=== PATIENT | male | born 1955 | race Caucasian/White ===

== ENCOUNTER 2016-09-30 10:33 | Emergency (ER) | payer OTHER ==
[~2016-09-30] VITALS: Ht 172.7 cm; Wt 83.9 kg
[~2016-09-30 10:33] MED LIST: ASPI-605 PO; ATOR80TA PO; CARV3.122 PO; CLOP75TA2 PO; ESOM40CA PO; HYDR-548 PO; ISOS10TA2 PO; LORA-258 PO; LOSA100T3 PO; NITR0.4T6 PO
[2016-09-30 10:49] VITALS: BP 126/81
[2016-09-30] MEDS ORDERED: HYDROCODONE/APAP 5/325MG 1 EACH TABLET ONE (11:25)
[2016-09-30] MEDS: HYDROCODONE/APAP 5/325MG 1 EACH TABLET PO ONE (11:30)
== END 2016-09-30 13:02 | disposition home or self-care (01) ==
LOC: ER 10:35
DX: M54.5 Low back pain (principal); I10 Essential (primary) hypertension; F32.9 Major depressive disorder, single episode, unspecified; E78.00 Pure hypercholesterolemia, unspecified; Z88.8 Allergy status to other drugs, medicaments and biological substances; Z79.82 Long term (current) use of aspirin; I25.10 Atherosclerotic heart disease of native coronary artery without angina pectoris; M46.90 Unspecified inflammatory spondylopathy, site unspecified; Z95.5 Presence of coronary angioplasty implant and graft
CPT/HCPCS: 72110-TC; A4606; Z7610

== ENCOUNTER 2016-10-17 17:47 | Emergency (ER) | payer OTHER ==
[~2016-10-17] VITALS: Ht 182.9 cm; Wt 88.5 kg
[2016-10-17 18:15] LABS: BASOPHILS % (AUTO) 0.3 % (0.0-2.0); DIFF TOTAL % 100 %; EOSINOPHILS % (AUTO) 0.2 % (0.0-6.0); HEMATOCRIT 48 % (39-51); LYMPHOCYTES # (AUTO) 0.8 /CMM (0.8-4.8); LYMPHOCYTES % (AUTO) 11.2 % (20.0-44.0); MEAN CORPUSCULAR HEMOGLOBIN 29 PG (26.0-33.0); MEAN CORPUSCULAR HGB CONC 34 g/dl (31.0-36.0); MEAN CORPUSCULAR VOLUME 86 fL (80-96); MONOCYTES # (AUTO) 0.4 /CMM (0.1-1.30); MONOCYTES % (AUTO) 5.1 % (2.0-12.0); NEUTROPHILS % (AUTO) 83.2 % (43.0-81.0); PLATELET COUNT (AUTO) 179 /CMM (150-450); RED BLOOD CELL COUNT(AUTO) 5.57 MIL/uL (4.5-6.0); WHITE BLOOD COUNT (AUTO) 7.2 K/uL (4.3-11.0)
[2016-10-17 18:28] LABS: INR 0.96 (0.87-1.13); PROTHROMBIN TIME 10.1 SECS (9.5-12.7)
[2016-10-17 18:32] LABS: TROPONIN I < 0.017 ng/mL (0.00-0.056)
[2016-10-17 18:37] LABS: ANION GAP 13 (5-14); CALCIUM, SERUM 8.9 mg/dL (8.5-10.1); CARBON DIOXIDE 27 mmol/L (21-32); CHLORIDE 106 mmol/L (98-107); GFR 76 mL/min (>60); GLUCOSE 130 mg/dL (74-106); POTASSIUM 3.7 mmol/L (3.5-5.1); SODIUM SERUM 142 mmol/L (136-145); UREA NITROGEN, BLOOD 9 mg/dL (7-18)
[2016-10-17] MEDS ORDERED: ASPIRIN 81 MG TAB.CHEW ONE (18:55)
[2016-10-17] MEDS ORDERED: ASPIRIN 81 MG TAB.CHEW PO ONE (19:00)
[2016-10-17 20:17] VITALS: BP 136/80
== END 2016-10-17 20:18 | disposition home or self-care (01) ==
LOC: ER 17:48
DX: R07.89 Other chest pain (principal); I10 Essential (primary) hypertension; F32.9 Major depressive disorder, single episode, unspecified; I25.110 Atherosclerotic heart disease of native coronary artery with unstable angina pectoris; E78.00 Pure hypercholesterolemia, unspecified; F17.200 Nicotine dependence, unspecified, uncomplicated; Z90.89 Acquired absence of other organs; Z95.5 Presence of coronary angioplasty implant and graft; Z88.8 Allergy status to other drugs, medicaments and biological substances
CPT/HCPCS: 36415; 71010; 80048; 83880; 84484; 85025; 85730; 93005 ×2; 99285; A4606; Z7610

== ENCOUNTER 2017-05-01 14:39 | Emergency (ER) | payer OTHER ==
[~2017-05-01] VITALS: Ht 182.9 cm; Wt 86.2 kg
--- NOTE | 2017-05-01 14:51 | NUR ---
PT AMBULATORY TO ER BED 12. C/O ABDOMINAL PAIN X 2 DAYS. PT STATES UMBILICAL HERNIA AND PAIN IS GETTING WORST. ALSO HE IS DUE FOR SURGERY ANYTIME NEXT WEEK. GOWNED AND PLACED ON MONITOR. AWAITING MD TAVERA.
--- NOTE | 2017-05-01 15:15 | NUR ---
DR SYED AT BEDSIDE FOR EVAL.
[2017-05-01 15:45] LABS: BASOPHILS % (AUTO) 0.4 % (0.0-2.0); EOSINOPHILS % (AUTO) 0.3 % (0.0-6.0); HEMATOCRIT 45 % (39-51); HEMOGLOBIN 15.1 g/dL (13.5-17.5); LYMPHOCYTES # (AUTO) 1.1 /CMM (0.8-4.8); LYMPHOCYTES % (AUTO) 17.2 % (20.0-44.0); MEAN CORPUSCULAR HEMOGLOBIN 29 PG (26.0-33.0); MEAN CORPUSCULAR HGB CONC 34 g/dl (31.0-36.0); MEAN CORPUSCULAR VOLUME 86 fL (80-96); MONOCYTES # (AUTO) 0.4 /CMM (0.1-1.30); MONOCYTES % (AUTO) 6.5 % (2.0-12.0); NEUTROPHILS # (AUTO) 4.9 /CMM (1.8-8.9); NEUTROPHILS % (AUTO) 75.6 % (43.0-81.0); PLATELET COUNT (AUTO) 175 /CMM (150-450); RDW COEFFICIENT OF VARIATION 13.9 (11.5-15.0); RED BLOOD CELL COUNT(AUTO) 5.19 MIL/uL (4.5-6.0); WHITE BLOOD COUNT (AUTO) 6.4 K/uL (4.3-11.0)
[2017-05-01 15:55] LABS: CALCIUM, SERUM 8.3 mg/dL (8.5-10.1); CARBON DIOXIDE 26 mmol/L (21-32); CHLORIDE 109 mmol/L (98-107); CREATININE 0.8 mg/dL (0.6-1.3); GLUCOSE 96 mg/dL (74-106); POTASSIUM 3.7 mmol/L (3.5-5.1); SODIUM SERUM 143 mmol/L (136-145); UREA NITROGEN, BLOOD 6 mg/dL (7-18)
[2017-05-01 16:02] LABS: TROPONIN I < 0.017 ng/mL (0.00-0.056)
--- NOTE | 2017-05-01 16:03 | NUR ---
RADIOLOGY AT BEDSIDE FOR CHEST XRAY.
[2017-05-01 16:11] LABS: ALANINE AMINOTRANSFERASE 45 U/L (12-78); ALBUMIN 3.8 g/dL (3.4-5.0); ALKALINE PHOSPHATASE 99 U/L (46-116); ASPARTATE AMINOTRANSFERASE 26 U/L (15-37); BILIRUBIN,DIRECT 0.1 mg/dL (0.0-0.2); BILIRUBIN,TOTAL 0.5 mg/dL (0.2-1.0); LIPASE 79 U/L (73-393); TOTAL PROTEIN, SERUM 6.9 g/dL (6.4-8.2)
--- NOTE | 2017-05-01 16:24 | NUR ---
PT TO RADIOLOGY FOR ABDOMINAL CT SCAN W/ CONTRAST.
--- NOTE | 2017-05-01 17:59 | NUR ---
Patient discharged to home in stable condition. Written and verbal after care instructions given. Patient verbalizes understanding of instruction.IV removed. Catheter intact and site benign. Pressure and 4x4 applied to site. No bleeding noted.
[2017-05-01 18:00] VITALS: BP 135/80
== END 2017-05-01 18:02 | disposition home or self-care (01) ==
LOC: ER 14:42
DX: K42.9 Umbilical hernia without obstruction or gangrene (principal); I10 Essential (primary) hypertension; F32.9 Major depressive disorder, single episode, unspecified; E78.00 Pure hypercholesterolemia, unspecified; F17.200 Nicotine dependence, unspecified, uncomplicated; I25.10 Atherosclerotic heart disease of native coronary artery without angina pectoris; Z95.5 Presence of coronary angioplasty implant and graft; Z88.8 Allergy status to other drugs, medicaments and biological substances; Z79.82 Long term (current) use of aspirin
CPT/HCPCS: 36415; 71010-TC; 80048-TC; 80076-TC; 83690-TC; 84484-TC; 85025-TC; A4606; J2270; J2405; J7030; J7050; Q9967; Z7610

== ENCOUNTER 2017-12-03 12:22 | Emergency (ER) | payer OTHER ==
[~2017-12-03] VITALS: Ht 182.9 cm; Wt 80.7 kg
[~2017-12-03 12:22] MED LIST changes: +CLOP75TA15 PO; -CLOP75TA2 PO; +NITR0.4T48 PO; -NITR0.4T6 PO
[2017-12-03] MEDS ORDERED: HYDROCODONE/APAP 5/325MG 1 EACH TABLET ONE (13:15)
--- NOTE | 2017-12-03 13:19 | NUR ---
PT MEDICATED ORDERED.
[2017-12-03] MEDS ORDERED: HYDROCODONE/APAP 5/325MG 1 EACH TABLET PO ONE (13:30)
[2017-12-03 13:37] LABS: BASOPHILS % (AUTO) 0.2 % (0.0-2.0); HEMATOCRIT 46 % (39-51); HEMOGLOBIN 15.6 g/dL (13.5-17.5); LYMPHOCYTES # (AUTO) 0.9 /CMM (0.8-4.8); LYMPHOCYTES % (AUTO) 17.2 % (20.0-44.0); MEAN CORPUSCULAR HGB CONC 34 g/dl (31.0-36.0); MEAN CORPUSCULAR VOLUME 84 fL (80-96); MONOCYTES # (AUTO) 0.3 /CMM (0.1-1.30); MONOCYTES % (AUTO) 5.8 % (2.0-12.0); NEUTROPHILS # (AUTO) 3.8 /CMM (1.8-8.9); NEUTROPHILS % (AUTO) 76.8 % (43.0-81.0); PLATELET COUNT (AUTO) 171 /CMM (150-450); RDW COEFFICIENT OF VARIATION 13.4 (11.5-15.0); RED BLOOD CELL COUNT(AUTO) 5.41 MIL/uL (4.5-6.0)
[2017-12-03 13:45] LABS: CALCIUM, SERUM 8.7 mg/dL (8.5-10.1); CREATININE 0.8 mg/dL (0.6-1.3); POTASSIUM 3.5 mmol/L (3.5-5.1)
[2017-12-03 13:52] LABS: ALBUMIN 3.6 g/dL (3.4-5.0); BILIRUBIN,DIRECT 0.1 mg/dL (0.0-0.2); BILIRUBIN,TOTAL 0.5 mg/dL (0.2-1.0); TOTAL PROTEIN, SERUM 7.2 g/dL (6.4-8.2)
[2017-12-03 14:26] VITALS: BP 135/66
--- NOTE | 2017-12-03 14:28 | NUR ---
Patient discharged to home in stable condition. Written and verbal after care instructions given. Patient verbalizes understanding of instruction.
== END 2017-12-03 14:28 | disposition home or self-care (01) ==
LOC: ER 12:23
DX: K46.9 Unspecified abdominal hernia without obstruction or gangrene (principal); R10.33 Periumbilical pain; F17.200 Nicotine dependence, unspecified, uncomplicated; F32.9 Major depressive disorder, single episode, unspecified; E78.00 Pure hypercholesterolemia, unspecified; I10 Essential (primary) hypertension; Z79.82 Long term (current) use of aspirin; Z88.8 Allergy status to other drugs, medicaments and biological substances; Z60.2 Problems related to living alone; Z98.890 Other specified postprocedural states
CPT/HCPCS: 36415; 80048-TC; 80076-TC; 83690-TC; 85025-TC; A4606; Z7610

== ENCOUNTER 2017-12-14 07:39 | Emergency (ER) | payer OTHER ==
[2017-12-14] MEDS ORDERED: QUETIAPINE FUMARATE 100 MG TABLET PO SCH (09:00)
== END 2017-12-14 08:16 | disposition home or self-care (01) ==
DX: F31.9 Bipolar disorder, unspecified (principal); E78.00 Pure hypercholesterolemia, unspecified; I10 Essential (primary) hypertension; I25.10 Atherosclerotic heart disease of native coronary artery without angina pectoris; Z79.82 Long term (current) use of aspirin; Z95.5 Presence of coronary angioplasty implant and graft; F17.200 Nicotine dependence, unspecified, uncomplicated; Z60.2 Problems related to living alone; Z90.89 Acquired absence of other organs; Z88.8 Allergy status to other drugs, medicaments and biological substances

== ENCOUNTER 2018-03-25 18:00 | Emergency (ER) | payer OTHER ==
[~2018-03-25] VITALS: Ht 182.9 cm; Wt 80.7 kg
--- NOTE | 2018-03-25 18:10 | NUR ---
MIDSTERNAL CP R/T LUE SINCE 1300, ON & OFF " PRESSURE " 8 WITH NAUSEA. DENIES SOB, DIZZINESS @ THIS TIME. PT SEEN & EVAL'D BY DR. MARTINES. ON MONITOR, ST & WILL CONT TO MONITOR.
[2018-03-25] MEDS ORDERED: ASPIRIN 325 MG TABLET ONE (18:22)
[2018-03-25] MEDS ORDERED: NITROGLYCERIN PACKET 1 GM PACKET ONE (18:22)
[2018-03-25 18:30] LABS: BASOPHILS # (AUTO) 0.2 /CMM (0.0-0.2); BASOPHILS % (AUTO) 3.5 % (0.0-2.0); EOSINOPHILS % (AUTO) 0.2 % (0.0-6.0); HEMATOCRIT 48 % (39-51); HEMOGLOBIN 15.9 g/dL (13.5-17.5); LYMPHOCYTES # (AUTO) 0.8 /CMM (0.8-4.8); LYMPHOCYTES % (AUTO) 14.8 % (20.0-44.0); MEAN CORPUSCULAR HEMOGLOBIN 29 PG (26.0-33.0); MEAN CORPUSCULAR HGB CONC 33 g/dl (31.0-36.0); MEAN CORPUSCULAR VOLUME 86 fL (80-96); MONOCYTES # (AUTO) 0.3 /CMM (0.1-1.30); MONOCYTES % (AUTO) 5.9 % (2.0-12.0); NEUTROPHILS # (AUTO) 4.2 /CMM (1.8-8.9); NEUTROPHILS % (AUTO) 75.6 % (43.0-81.0); PLATELET COUNT (AUTO) 160 /CMM (150-450); RDW COEFFICIENT OF VARIATION 13.3 (11.5-15.0); RED BLOOD CELL COUNT(AUTO) 5.52 MIL/uL (4.5-6.0); WHITE BLOOD COUNT (AUTO) 5.5 K/uL (4.3-11.0)
[2018-03-25] MEDS ORDERED: NITROGLYCERIN PACKET 1 GM PACKET TD ONE (18:30)
[2018-03-25] MEDS ORDERED: ASPIRIN 325 MG TABLET PO ONE (18:30)
[2018-03-25 18:44] LABS: INR 0.95 (0.85-1.15)
[2018-03-25 18:53] VITALS: BP 111/68
--- NOTE | 2018-03-25 18:53 | NUR ---
PT STS CP 02/21, NON RADIATING. DENIES SOB, DIZZINESS, N/V, ARM/JAW PAIN @ THIS TIME. TELE ST, NAD NOTED. DR. MARTINES AWARE OF PT'S CONDITION.
--- NOTE | 2018-03-25 19:57 | NUR ---
PT REFUSED TO STAY IN HOSPITAL, PULLED OUT SALINE LOCK & LEFT ED. DR. MARTNIES AWARE.
[2018-03-25 20:42] LABS: TROPONIN I < 0.017 ng/mL (0.00-0.056)
[2018-03-25 21:06] LABS: CALCIUM, SERUM 8.4 mg/dL (8.5-10.1); CARBON DIOXIDE 20 mmol/L (21-32); CHLORIDE 109 mmol/L (98-107); CREATININE 1.1 mg/dL (0.6-1.3); GLUCOSE 141 mg/dL (74-106); POTASSIUM 3.5 mmol/L (3.5-5.1); SODIUM SERUM 143 mmol/L (136-145); UREA NITROGEN, BLOOD 12 mg/dL (7-18)
[2018-03-25 21:12] LABS: ALANINE AMINOTRANSFERASE 34 U/L (12-78); ALBUMIN 3.5 g/dL (3.4-5.0); ALKALINE PHOSPHATASE 101 U/L (46-116); ASPARTATE AMINOTRANSFERASE 27 U/L (15-37); BILIRUBIN,DIRECT 0.1 mg/dL (0.0-0.2); BILIRUBIN,TOTAL 0.8 mg/dL (0.2-1.0); TOTAL PROTEIN, SERUM 6.6 g/dL (6.4-8.2)
== END 2018-03-25 19:57 | disposition left against medical advice (07) ==
LOC: ER 18:01
DX: R07.89 Other chest pain (principal); I25.10 Atherosclerotic heart disease of native coronary artery without angina pectoris; E78.5 Hyperlipidemia, unspecified; F32.9 Major depressive disorder, single episode, unspecified; E78.00 Pure hypercholesterolemia, unspecified; F17.210 Nicotine dependence, cigarettes, uncomplicated; I10 Essential (primary) hypertension; Z95.5 Presence of coronary angioplasty implant and graft; Z90.89 Acquired absence of other organs; Z88.8 Allergy status to other drugs, medicaments and biological substances; Z60.2 Problems related to living alone; Z79.82 Long term (current) use of aspirin
CPT/HCPCS: 36415; 71045; 80048; 80076; 84484; 85025; 85730; 87081; 93005 ×2; 99285; 99406; A4606; Z7610

== ENCOUNTER 2018-11-21 03:16 | Emergency (ER) | payer OTHER ==
[~2018-11-21] VITALS: Ht 182.9 cm; Wt 72.1 kg
[~2018-11-21 03:16] MED LIST changes: +HYDR-4354 PO; -HYDR-548 PO
[2018-11-21] MEDS ORDERED: oxyCODONE/APAP (5/325 MG) 1 UDTAB TABLET ONE (03:39)
[2018-11-21] MEDS ORDERED: ONDANSETRON 4 MG TAB.RAPDIS ONE (03:39)
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
[2018-11-21] MEDS ORDERED: ONDANSETRON 4 MG TAB.RAPDIS SL ONE (04:00)
[2018-11-21] MEDS ORDERED: oxyCODONE/APAP (5/325 MG) 1 UDTAB TABLET PO ONE (04:00)
--- NOTE | 2018-11-21 04:38 | NUR ---
Patient discharged to home in stable condition. Written and verbal after care instructions given. Patient verbalizes understanding of instruction. Pt ambulatory with a steady gait. Instructed not to drive
[2018-11-21 04:39] VITALS: BP 110/89
== END 2018-11-21 04:38 | disposition home or self-care (01) ==
LOC: ER 03:18
DX: S20.212A Contusion of left front wall of thorax, initial encounter (principal); G89.29 Other chronic pain; N48.89 Other specified disorders of penis; F17.200 Nicotine dependence, unspecified, uncomplicated; M25.552 Pain in left hip; I10 Essential (primary) hypertension; F32.9 Major depressive disorder, single episode, unspecified; I25.10 Atherosclerotic heart disease of native coronary artery without angina pectoris; E78.00 Pure hypercholesterolemia, unspecified; Z95.818 Presence of other cardiac implants and grafts; Z98.890 Other specified postprocedural states; Z90.89 Acquired absence of other organs; Z88.8 Allergy status to other drugs, medicaments and biological substances; Z60.2 Problems related to living alone; Z79.899 Other long term (current) drug therapy; V09.9XXA Pedestrian injured in unspecified transport accident, initial encounter; Y93.89 Activity, other specified; Y92.89 Other specified places as the place of occurrence of the external cause; Y99.8 Other external cause status
CPT/HCPCS: 71100; 73503; 99283; 99406; Q0162; 73502

== ENCOUNTER 2019-01-31 17:29 | Emergency (ER) | payer OTHER ==
[~2019-01-31] VITALS: Ht 182.9 cm; Wt 74.8 kg
--- NOTE | 2019-01-31 17:40 | NUR ---
PRESSURE LIKE MIDSTERNAL CHEST PAIN THAT STARTED NOONTIME. PATIENT A/OX4, BREATHING EVEN AND UNLABORED, NO SOB NOTED, PATIENT ATTACHED ON THE AUDIT ASSOCIATE. VSS.
[2019-01-31] MEDS ORDERED: NITROGLYCERIN PACKET 1 GM PACKET TD ONE (18:00)
[2019-01-31] MEDS ORDERED: NITROGLYCERIN PACKET 1 GM PACKET ONE (18:10)
--- NOTE | 2019-01-31 18:10 | NUR ---
IV LINE ESTABLISHED ON RIGHT AC G20, BLOOD DRAWN AND SENT TO LAB.
[2019-01-31 18:13] LABS: BASOPHILS % (AUTO) 0.4 % (0.0-2.0); EOSINOPHILS % (AUTO) 0.1 % (0.0-6.0); HEMATOCRIT 45 % (39-51); HEMOGLOBIN 15.4 g/dL (13.5-17.5); LYMPHOCYTES # (AUTO) 0.9 /CMM (0.8-4.8); LYMPHOCYTES % (AUTO) 16.7 % (20.0-44.0); MEAN CORPUSCULAR HGB CONC 34 g/dl (31.0-36.0); MEAN CORPUSCULAR VOLUME 85 fL (80-96); MONOCYTES # (AUTO) 0.4 /CMM (0.1-1.30); MONOCYTES % (AUTO) 6.3 % (2.0-12.0); NEUTROPHILS # (AUTO) 4.3 /CMM (1.8-8.9); NEUTROPHILS % (AUTO) 76.5 % (43.0-81.0); PLATELET COUNT (AUTO) 168 /CMM (150-450); RED BLOOD CELL COUNT(AUTO) 5.23 MIL/uL (4.5-6.0); WHITE BLOOD COUNT (AUTO) 5.7 K/uL (4.3-11.0)
[2019-01-31 18:20] LABS: CARBON DIOXIDE 25 mmol/L (21-32); CHLORIDE 109 mmol/L (98-107); GLUCOSE 91 mg/dL (74-106); POTASSIUM 3.7 mmol/L (3.5-5.1); SODIUM SERUM 144 mmol/L (136-145); UREA NITROGEN, BLOOD 11 mg/dL (7-18)
--- NOTE | 2019-01-31 19:25 | NUR ---
PATIENT A/OX4, NAD, VSS. BREATHING EVEN AND UNLABORED, NO SOB NOTED. ENDORSED TO ROSY BUNCH FOR ESTELLE.
--- NOTE | 2019-01-31 19:58 | NUR ---
RESTING IN BED STILL W/ ON AND OFF CP, VSS. ON CONT MONITORING .
[2019-01-31] MEDS ORDERED: NITROGLYCERIN PACKET 1 GM PACKET TOP ONE (20:00)
--- NOTE | 2019-01-31 20:58 | NUR ---
REGAL PT CAPPED TO [facility]. AWAITING TRANSFER INFO. PT UPDATED ON STATUS.
[2019-01-31] MEDS ORDERED: HYDROCODONE/APAP 10/325MG 1 EA TABLET ONE (20:59)
[2019-01-31] MEDS ORDERED: HYDROCODONE/APAP 10/325MG 1 EA TABLET PO ONE (21:00)
--- NOTE | 2019-01-31 21:45 | NUR ---
PETTY FREEMAN SERVICE CASHIER CALLED. PATIENT IS GOING TO [facility] NURSES NAME IS NURYS # [phone]. PETTY STATED THAT SHE WAS WORKING ON SETTING UP TRANSPORTATION.
--- NOTE | 2019-01-31 22:11 | NUR ---
REPORT GIVEN TO ALIVIA TUCKER AT [facility] [phone] FOR PT TFR VIA ALS AMBULANCE TO [facility].
--- NOTE | 2019-01-31 23:39 | NUR ---
PETE HVAC ENGINEERING TECHNICIAN PETTY'S CONTACT # [phone]. GAVE AUTH. # [id number]. WAITING FOR ANOTHER AUTH NUMBER TO GIVE TO [facility] FOR TRANSPORT. ETA UNKNOWN.
[2019-01-31] MEDS ORDERED: MORPHINE SULFATE INJ 2 MG/ML DISP.SYRIN ONE (23:42)
--- NOTE | 2019-01-31 23:45 | NUR ---
TRIP # [id number]. WAITING FOR SECOND AUTH # FROM [facility]. CONTACT PETTY
[2019-02-01] MEDS ORDERED: MORPHINE SULFATE INJ 2 MG/ML DISP.SYRIN IV ONE
--- NOTE | 2019-02-01 00:30 | NUR ---
NEW COILED COIL INSPECTOR # [phone].
--- NOTE | 2019-02-01 00:52 | NUR ---
ROXANNE Brunner/ PETE ZAPIEN ETA 130AM.
--- NOTE | 2019-02-01 01:18 | NUR ---
REPORT GIVEN TO TREVIN VARELA AM [facility]#41 FOR PT TRANSFER VIA ALS TO [facility]. PT AOX4, RESP EVEN & UNLABORED, NSR W/ NAD NOTED.
[2019-02-01 01:20] VITALS: BP 132/60
--- NOTE | 2019-02-01 01:42 | NUR ---
PT WAS TRANSFERRED TO [facility] IN STABLE CONDITION. REPORTED RELIEF OF PAIN.
== END 2019-02-01 01:42 ==
LOC: ER 17:29
DX: R07.89 Other chest pain (principal); I25.10 Atherosclerotic heart disease of native coronary artery without angina pectoris; I10 Essential (primary) hypertension; E78.00 Pure hypercholesterolemia, unspecified; I25.2 Old myocardial infarction; F32.9 Major depressive disorder, single episode, unspecified; F17.200 Nicotine dependence, unspecified, uncomplicated; Z95.5 Presence of coronary angioplasty implant and graft; Z79.82 Long term (current) use of aspirin; Z90.89 Acquired absence of other organs; Z98.890 Other specified postprocedural states; Z60.2 Problems related to living alone; Z88.8 Allergy status to other drugs, medicaments and biological substances
CPT/HCPCS: 36415; 71045; 80048; 84484; 85025; 87081; 93005 ×2; 96374; 99285; J2270

== ENCOUNTER 2019-09-22 23:58 | Emergency (ER) | payer OTHER ==
[~2019-09-22] VITALS: Ht 182.9 cm; Wt 74.4 kg
[2019-09-23] MEDS ORDERED: ACETAMINOPHEN 325 MG TABLET ONE (00:25)
[2019-09-23] MEDS ORDERED: ASPIRIN 325 MG TABLET ONE (00:26)
[2019-09-23] MEDS ORDERED: NITROGLYCERIN PACKET 1 GM PACKET ONE (00:26)
[2019-09-23] MEDS ORDERED: ACETAMINOPHEN 325 MG TABLET PO ONE (00:30)
[2019-09-23] MEDS ORDERED: NITROGLYCERIN PACKET 1 GM PACKET TD ONE (00:30)
[2019-09-23] MEDS ORDERED: ASPIRIN 325 MG TABLET PO ONE (00:30)
[2019-09-23 00:36] LABS: BASOPHILS # (AUTO) 0.1 /CMM (0.0-0.2); BASOPHILS % (AUTO) 0.8 % (0.0-2.0); EOSINOPHILS % (AUTO) 0.2 % (0.0-6.0); HEMATOCRIT 45 % (39-51); HEMOGLOBIN 15.6 g/dL (13.5-17.5); LYMPHOCYTES # (AUTO) 1.8 /CMM (0.8-4.8); LYMPHOCYTES % (AUTO) 23.7 % (20.0-44.0); MEAN CORPUSCULAR HGB CONC 35 g/dl (31.0-36.0); MEAN CORPUSCULAR VOLUME 86 fL (80-96); MONOCYTES # (AUTO) 0.7 /CMM (0.1-1.30); MONOCYTES % (AUTO) 8.8 % (2.0-12.0); NEUTROPHILS % (AUTO) 66.5 % (43.0-81.0); PLATELET COUNT (AUTO) 230 /CMM (150-450); RED BLOOD CELL COUNT(AUTO) 5.22 MIL/uL (4.5-6.0); WHITE BLOOD COUNT (AUTO) 7.5 K/uL (4.3-11.0)
[2019-09-23 00:50] LABS: CALCIUM, SERUM 9.3 mg/dL (8.5-10.1); CARBON DIOXIDE 27 mmol/L (21-32); CHLORIDE 106 mmol/L (98-107); CREATININE 0.9 mg/dL (0.6-1.3); GLUCOSE 109 mg/dL (74-106); POTASSIUM 4.1 mmol/L (3.5-5.1); SODIUM SERUM 142 mmol/L (136-145); UREA NITROGEN, BLOOD 15 mg/dL (7-18)
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
--- NOTE | 2019-09-23 03:48 | NUR ---
PT VERBALIZED FEELING OF ANXIETY. MD MADE AWARE. VERBAL ORDER FOR ATIVAN 1MG PO X 1. NOTED AND CARRIED OUT
[2019-09-23] MEDS ORDERED: LORAZEPAM 1 MG TABLET ONE (03:49)
[2019-09-23] MEDS ORDERED: LORAZEPAM 1 MG TABLET PO ONE (04:00)
--- NOTE | 2019-09-23 05:37 | NUR ---
PETE CALLED WITH TRANSFER INFO. [facility] REPORT #: [phone] ALS [facility] ETA 7AM
--- NOTE | 2019-09-23 06:40 | NUR ---
REPORT GIVEN TO ALIVIA RAHMAN FOR ESTELLE AT THE [facility]
[2019-09-23 07:10] VITALS: BP 127/78
--- NOTE | 2019-09-23 07:21 | NUR ---
PRN AT BEDSIDE FOR PT TRANSPORT TO [facility]. REPORT GIVEN TO AMBULANCE STAFF. PT LEFT ON RCAYUCOS. NAD NOTED.
== END 2019-09-23 07:24 | disposition short-term general hospital (02) ==
LOC: ER 09-23 00:03
DX: R07.89 Other chest pain (principal); I10 Essential (primary) hypertension; F32.9 Major depressive disorder, single episode, unspecified; I25.10 Atherosclerotic heart disease of native coronary artery without angina pectoris; E78.00 Pure hypercholesterolemia, unspecified; F17.200 Nicotine dependence, unspecified, uncomplicated; Z95.818 Presence of other cardiac implants and grafts; Z98.890 Other specified postprocedural states; Z90.89 Acquired absence of other organs; Z88.8 Allergy status to other drugs, medicaments and biological substances; Z60.2 Problems related to living alone; Z79.82 Long term (current) use of aspirin; Z79.899 Other long term (current) drug therapy
CPT/HCPCS: 36415; 71045-TC; 80048-TC; 84484-TC; 85025-TC

== ENCOUNTER 2019-10-22 21:24 | Emergency (ER) | payer OTHER ==
[~2019-10-22] VITALS: Ht 182.9 cm; Wt 72.6 kg
--- NOTE | 2019-10-22 21:53 | NUR ---
PT AAOX4 AMBULATORY WITH STEADY GAIT. C/O CPX 4 HRS. +SOB, +LIGHTHEADEDNESS, +NAUSEA. RR EVEN AND UNLABORED, SKIN WARM AND INTACT. PT PLACED ON MONITOR AND PULSE OX. LABS DRAWN AND SENT TO LAB. WILL CONTINUE TO MONITOR.
[2019-10-22 21:56] LABS: BASOPHILS % (AUTO) 0.2 % (0.0-2.0); EOSINOPHILS % (AUTO) 0.2 % (0.0-6.0); HEMATOCRIT 45 % (39-51); HEMOGLOBIN 15.3 g/dL (13.5-17.5); LYMPHOCYTES % (AUTO) 18.1 % (20.0-44.0); MEAN CORPUSCULAR HGB CONC 34 g/dl (31.0-36.0); MEAN CORPUSCULAR VOLUME 86 fL (80-96); MONOCYTES # (AUTO) 0.4 /CMM (0.1-1.30); NEUTROPHILS % (AUTO) 74.5 % (43.0-81.0); PLATELET COUNT (AUTO) 176 /CMM (150-450); WHITE BLOOD COUNT (AUTO) 5.4 K/uL (4.3-11.0)
[2019-10-22 22:09] LABS: CALCIUM, SERUM 9.2 mg/dL (8.5-10.1); CARBON DIOXIDE 29 mmol/L (21-32); CHLORIDE 107 mmol/L (98-107); GLUCOSE 120 mg/dL (74-106); POTASSIUM 3.9 mmol/L (3.5-5.1); SODIUM SERUM 146 mmol/L (136-145); UREA NITROGEN, BLOOD 13 mg/dL (7-18)
[2019-10-22] MEDS ORDERED: LORAZEPAM INJ 2 MG/ML VIAL IV ONE (22:30)
[2019-10-22] MEDS ORDERED: LORAZEPAM INJ 2 MG/ML VIAL ONE (22:32)
--- NOTE | 2019-10-22 23:27 | NUR ---
IV removed. Catheter intact and site benign. Pressure and 4x4 applied to site. No bleeding noted.
--- NOTE | 2019-10-22 23:48 | NUR ---
Patient discharged to home in stable condition. Written and verbal after care instructions given. Patient verbalizes understanding of instruction. Pt ambulated with steady gait. Denies pain. VSS.
[2019-10-22 23:49] VITALS: BP 128/78
== END 2019-10-22 23:49 | disposition home or self-care (01) ==
LOC: ER 21:30
DX: R07.89 Other chest pain (principal); I10 Essential (primary) hypertension; E78.00 Pure hypercholesterolemia, unspecified; I25.10 Atherosclerotic heart disease of native coronary artery without angina pectoris; Z95.5 Presence of coronary angioplasty implant and graft; Z98.890 Other specified postprocedural states; Z90.89 Acquired absence of other organs; Z60.2 Problems related to living alone; Z79.899 Other long term (current) drug therapy; Z79.82 Long term (current) use of aspirin; Z88.8 Allergy status to other drugs, medicaments and biological substances
CPT/HCPCS: 36415; 71045; 80048; 84484; 85025; 93005 ×2; 96374; 99285; J2060

== ENCOUNTER 2019-11-09 15:00 | Emergency (ER) | payer OTHER ==
[~2019-11-09] VITALS: Ht 182.9 cm; Wt 70.8 kg
--- NOTE | 2019-11-09 15:06 | NUR ---
PT AMBULATORY TO ER BED 01 C/O CHEST PAIN X 3 HOURS UNRELIEVED W. NITRO. PT ALSO ENDOSES NAUSEA NO VOMITING. PLACED ON MONITOR. VSS FIGURE SKATER. AWAITING MD TAVERA.
--- NOTE | 2019-11-09 15:13 | NUR ---
DR PICKENS AT BEDSIDE FOR EVAL.
[2019-11-09] MEDS ORDERED: ACETAMINOPHEN ES 500 MG TABLET ONE (15:29)
[2019-11-09] MEDS ORDERED: ACETAMINOPHEN ES 500 MG TABLET PO ONE (15:30)
--- NOTE | 2019-11-09 15:36 | NUR ---
RADIOLOGY AT BEDSIDE FOR CHEST XRAY.
[2019-11-09 15:43] LABS: BASOPHILS % (AUTO) 0.1 % (0.0-2.0); EOSINOPHILS % (AUTO) 0.1 % (0.0-6.0); HEMATOCRIT 44 % (39-51); HEMOGLOBIN 15.2 g/dL (13.5-17.5); LYMPHOCYTES # (AUTO) 1.1 /CMM (0.8-4.8); LYMPHOCYTES % (AUTO) 14.8 % (20.0-44.0); MEAN CORPUSCULAR HGB CONC 34 g/dl (31.0-36.0); MEAN CORPUSCULAR VOLUME 86 fL (80-96); MONOCYTES # (AUTO) 0.4 /CMM (0.1-1.30); MONOCYTES % (AUTO) 5.4 % (2.0-12.0); NEUTROPHILS # (AUTO) 6.2 /CMM (1.8-8.9); NEUTROPHILS % (AUTO) 79.6 % (43.0-81.0); PLATELET COUNT (AUTO) 223 /CMM (150-450); RED BLOOD CELL COUNT(AUTO) 5.15 MIL/uL (4.5-6.0); WHITE BLOOD COUNT (AUTO) 7.8 K/uL (4.3-11.0)
[2019-11-09 15:52] LABS: ALANINE AMINOTRANSFERASE 32 U/L (12-78); ALKALINE PHOSPHATASE 124 U/L (46-116); ASPARTATE AMINOTRANSFERASE 18 U/L (15-37); BILIRUBIN,DIRECT 0.1 mg/dL (0.0-0.2); BILIRUBIN,TOTAL 0.7 mg/dL (0.2-1.0); CALCIUM, SERUM 9.2 mg/dL (8.5-10.1); CARBON DIOXIDE 25 mmol/L (21-32); CHLORIDE 104 mmol/L (98-107); CREATININE 1.1 mg/dL (0.6-1.3); GLUCOSE 125 mg/dL (74-106); POTASSIUM 3.5 mmol/L (3.5-5.1); SODIUM SERUM 143 mmol/L (136-145); TOTAL PROTEIN, SERUM 7.6 g/dL (6.4-8.2); UREA NITROGEN, BLOOD 12 mg/dL (7-18)
[2019-11-09] MEDS ORDERED: HYDROCODONE/APAP 5/325MG 1 EACH TABLET ONE (16:29)
[2019-11-09] MEDS ORDERED: HYDROCODONE/APAP 5/325MG 1 EACH TABLET PO ONE (16:30)
[2019-11-09 18:15] VITALS: BP 118/66
== END 2019-11-09 18:16 | disposition home or self-care (01) ==
LOC: ER 15:01
DX: R07.89 Other chest pain (principal); M25.552 Pain in left hip; I10 Essential (primary) hypertension; E78.00 Pure hypercholesterolemia, unspecified; Z95.5 Presence of coronary angioplasty implant and graft; Z98.890 Other specified postprocedural states; Z90.89 Acquired absence of other organs; Z88.8 Allergy status to other drugs, medicaments and biological substances; Z79.899 Other long term (current) drug therapy; Z79.82 Long term (current) use of aspirin
CPT/HCPCS: 36415; 71045-TC; 73502; 80048-TC; 80076-TC; 84484-TC; 85025-TC; 85378-TC

== ENCOUNTER 2020-04-02 09:03 | Emergency (ER) | payer MEDICARE, OTHER ==
[~2020-04-02] VITALS: Ht 182.9 cm; Wt 83.9 kg
--- NOTE | 2020-04-02 09:20 | NUR ---
CHEST PRESSURE AND SOB SINCE LAST NIGHT, "SYNCOPE" THIS AM. PATIENT A/OX4, BREATHING EVEN AND UNLABORED ON ROOM AIR WITH 99% SPO2. CHANGED INTO A GOWN, ATTACHED TO THE COUTIERIER. DR. DEAN AT BEDSIDE FOR EVAL. EKG ORDERED STAT.
--- NOTE | 2020-04-02 09:28 | NUR ---
IV LINE ESTABLISHED, BLOOD DRAWN AND SENT TO LAB.
[2020-04-02 09:29] LABS: BASOPHILS % (AUTO) 0.1 % (0.0-2.0); EOSINOPHILS % (AUTO) 0.1 % (0.0-6.0); HEMATOCRIT 40 % (39-51); HEMOGLOBIN 13.8 g/dL (13.5-17.5); LYMPHOCYTES # (AUTO) 1.1 /CMM (0.8-4.8); LYMPHOCYTES % (AUTO) 19.8 % (20.0-44.0); MEAN CORPUSCULAR HGB CONC 34 g/dl (31.0-36.0); MEAN CORPUSCULAR VOLUME 86 fL (80-96); MONOCYTES # (AUTO) 0.4 /CMM (0.1-1.30); MONOCYTES % (AUTO) 7.1 % (2.0-12.0); NEUTROPHILS # (AUTO) 3.9 /CMM (1.8-8.9); NEUTROPHILS % (AUTO) 72.9 % (43.0-81.0); PLATELET COUNT (AUTO) 164 /CMM (150-450); WHITE BLOOD COUNT (AUTO) 5.4 K/uL (4.3-11.0)
[2020-04-02] MEDS ORDERED: ASPIRIN 81 MG TAB.CHEW ONE (09:47)
[2020-04-02 09:52] LABS: CALCIUM, SERUM 8.9 mg/dL (8.5-10.1); CARBON DIOXIDE 27 mmol/L (21-32); CHLORIDE 106 mmol/L (98-107); CREATININE 0.9 mg/dL (0.6-1.3); GLUCOSE 94 mg/dL (74-106); POTASSIUM 3.6 mmol/L (3.5-5.1); SODIUM SERUM 141 mmol/L (136-145); UREA NITROGEN, BLOOD 15 mg/dL (7-18)
[2020-04-02] MEDS ORDERED: SUCR1TAB PO (09:54)
[2020-04-02] MEDS ORDERED: LORA2TAB95 PO (09:54)
[2020-04-02] MEDS ORDERED: DIVA500T54 PO (09:54)
[2020-04-02] MEDS ORDERED: HYDR-3895 PO (09:54)
[2020-04-02] MEDS ORDERED: HYDR-3980 PO (09:54)
[2020-04-02] MEDS ORDERED: OMEP40CA13 PO (09:54)
[2020-04-02] MEDS ORDERED: QUET200T PO (09:54)
[2020-04-02] MEDS ORDERED: METO25TA6 PO (09:54)
[2020-04-02] MEDS ORDERED: ISOS60TA4 PO (09:54)
[2020-04-02] MEDS ORDERED: BENZ1TAB7 PO (09:54)
[2020-04-02] MEDS ORDERED: DOCU-270 PO (09:54)
[2020-04-02] MEDS ORDERED: CLON1TAB12 PO (09:54)
[2020-04-02] MEDS ORDERED: ESCI20TA PO (09:54)
[2020-04-02] MEDS ORDERED: ASPIRIN 81 MG TAB.CHEW PO ONE (10:00)
--- NOTE | 2020-04-02 10:15 | NUR ---
PATIENT RESTING, NO DISTRESS NOTED. VITALS STABLE.
--- NOTE | 2020-04-02 10:57 | NUR ---
SPOKE TO DANYELL HERNANDEZ. THEY ARE GOING TO SET UP A PEER TO PEER AND HAVE THE PATIENT TRANSFERED.
--- NOTE | 2020-04-02 11:42 | NUR ---
PATIENT RESTING, APPEARS TO BE SLIGHTLY ANXIOUS BUT VITALS ARE STABLE.
--- NOTE | 2020-04-02 12:03 | NUR ---
PER DANYELL BARRIOS WAITING FOR A BED [facility] ACCEPTED BY DR MITTAL
[2020-04-02] MEDS ORDERED: LORAZEPAM 0.5 MG TABLET ONE (12:23)
[2020-04-02] MEDS ORDERED: LORAZEPAM 1 MG TABLET PO ONE (12:30)
--- NOTE | 2020-04-02 14:01 | NUR ---
PER DANYELL BARRIOS, NO BEDS AT [facility], WORKING ON [facility]
--- NOTE | 2020-04-02 14:30 | NUR ---
Patient resting, denies pain at this time.
--- NOTE | 2020-04-02 14:30 | NUR ---
covid swab sent
--- NOTE | 2020-04-02 14:56 | NUR ---
ACCEPTED AT [facility] THEN [facility] COVID SCREENING [phone] ER [facility] AMBULANCE STILL PENDING
--- NOTE | 2020-04-02 15:21 | NUR ---
AMBULANCE ETA 90 MINS TO [facility]
--- NOTE | 2020-04-02 15:32 | NUR ---
ATTEMPTED TO GIVE REPORT AT [facility], WAS TOLD TO CALL BACK IN 15-20 MINS.
--- NOTE | 2020-04-02 15:42 | NUR ---
NEGATIVE COVID RESULT
[2020-04-02] MEDS ORDERED: MORPHINE SULFATE INJ 2 MG/ML DISP.SYRIN IV ONE (16:30)
[2020-04-02] MEDS ORDERED: MORPHINE SULFATE INJ 4 MG/ML DISP.SYRIN ONE (16:36)
[2020-04-02 17:50] VITALS: BP 135/67
--- NOTE | 2020-04-02 17:56 | NUR ---
REPORT GIVEN TO WILBER BUNCH.
--- NOTE | 2020-04-02 17:57 | NUR ---
REGAL [phone]
--- NOTE | 2020-04-02 18:00 | NUR ---
PATIENT A/OX4, BREATHING EVEN AND UNLABORED, NO SOB NOTED, VITALS STABLE, REPORT GIVEN TO INFORMATICS NURSE. PATIENT LEFT IN STABLE CONDITION, TRANSFERRED TO [facility].
== END 2020-04-02 18:50 | disposition short-term general hospital (02) ==
LOC: ER 09:10
DX: R07.9 Chest pain, unspecified (principal); R00.1 Bradycardia, unspecified; E78.5 Hyperlipidemia, unspecified; I10 Essential (primary) hypertension; I25.10 Atherosclerotic heart disease of native coronary artery without angina pectoris; F32.9 Major depressive disorder, single episode, unspecified; Z79.02 Long term (current) use of antithrombotics/antiplatelets; Z79.899 Other long term (current) drug therapy; Z88.8 Allergy status to other drugs, medicaments and biological substances; Z95.5 Presence of coronary angioplasty implant and graft; Z20.828 Contact with and (suspected) exposure to other viral communicable diseases
CPT/HCPCS: 36415; 71045; 80048; 83880; 84484; 85025; 85610; 87426; 93005; 96374; 99285; J2270; C9803-CS

== ENCOUNTER 2020-05-08 08:15 | Emergency (ER) | payer OTHER ==
[~2020-05-08] VITALS: Ht 182.9 cm; Wt 77.1 kg
[~2020-05-08 08:15] MED LIST changes: +BENZ1TAB7 PO; -CARV3.122 PO; +CLON1TAB12 PO; +DIVA500T54 PO; +DOCU-270 PO; +ESCI20TA PO; +HYDR-3895 PO; +HYDR-3980 PO; -HYDR-4354 PO; -ISOS10TA2 PO; +ISOS60TA4 PO; -LORA-258 PO; +LORA2TAB95 PO; +METO25TA6 PO; +OMEP40CA13 PO; +QUET200T PO; +SUCR1TAB PO
--- NOTE | 2020-05-08 08:20 | NUR ---
CHEST PAIN X 3 DAYS. PATIENT A/OX4, FEELS ANXIOUS. BREATHING RAPIDLY AND MILD SOB. CHANGED INTO A GOWN, ATTACHED TO THE INSIDE METER TESTER.
[2020-05-08] MEDS ORDERED: LORAZEPAM 1 MG TABLET ONE ×2 (08:29→09:22)
[2020-05-08] MEDS ORDERED: ASPIRIN EC 81 MG TABLET.DR PO ONE (08:29)
[2020-05-08] MEDS ORDERED: ASPIRIN 81 MG TAB.CHEW PO ONE (08:30)
[2020-05-08] MEDS ORDERED: LORAZEPAM 1 MG TABLET PO ONE ×2 (08:30→09:30)
[2020-05-08 08:49] LABS: BASOPHILS % (AUTO) 0.2 % (0.0-2.0); EOSINOPHILS % (AUTO) 0.2 % (0.0-6.0); HEMATOCRIT 44 % (39-51); HEMOGLOBIN 14.7 g/dL (13.5-17.5); LYMPHOCYTES # (AUTO) 1.1 /CMM (0.8-4.8); LYMPHOCYTES % (AUTO) 20.3 % (20.0-44.0); MEAN CORPUSCULAR HGB CONC 33 g/dl (31.0-36.0); MEAN CORPUSCULAR VOLUME 87 fL (80-96); MONOCYTES # (AUTO) 0.5 /CMM (0.1-1.30); MONOCYTES % (AUTO) 8.7 % (2.0-12.0); NEUTROPHILS # (AUTO) 3.8 /CMM (1.8-8.9); NEUTROPHILS % (AUTO) 70.6 % (43.0-81.0); PLATELET COUNT (AUTO) 179 /CMM (150-450); RED BLOOD CELL COUNT(AUTO) 5.07 MIL/uL (4.5-6.0); WHITE BLOOD COUNT (AUTO) 5.3 K/uL (4.3-11.0)
[2020-05-08 08:55] LABS: CALCIUM, SERUM 9.2 mg/dL (8.5-10.1); CARBON DIOXIDE 28 mmol/L (21-32); CHLORIDE 103 mmol/L (98-107); CREATININE 0.8 mg/dL (0.6-1.3); GLUCOSE 100 mg/dL (74-106); POTASSIUM 3.5 mmol/L (3.5-5.1); SODIUM SERUM 140 mmol/L (136-145); UREA NITROGEN, BLOOD 14 mg/dL (7-18)
--- NOTE | 2020-05-08 08:57 | NUR ---
URINE SAMPLE SENT TO LAB.
--- NOTE | 2020-05-08 12:38 | NUR ---
PATIENT RESTING, NO DISTRESS NOTED, VITALS STABLE. REPEAT TROPONIN BLOOD DRAWN.
[2020-05-08] MEDS ORDERED: LORAZEPAM 0.5 MG TABLET PO ONE (13:30)
[2020-05-08] MEDS ORDERED: LORAZEPAM 0.5 MG TABLET ONE (13:32)
--- NOTE | 2020-05-08 14:16 | NUR ---
PATIENT A/OX4, DENIES CHEST PAIN, IV removed. Catheter intact and site benign. Pressure and 4x4 applied to site. No bleeding noted.Patient discharged to home in stable condition. Written and verbal after care instructions given. Patient verbalizes understanding of instruction.
[2020-05-08 14:17] VITALS: BP 134/74
== END 2020-05-08 14:17 | disposition home or self-care (01) ==
LOC: ER 08:18
DX: R07.89 Other chest pain (principal); F41.9 Anxiety disorder, unspecified; I10 Essential (primary) hypertension; E78.5 Hyperlipidemia, unspecified; I25.10 Atherosclerotic heart disease of native coronary artery without angina pectoris; F32.9 Major depressive disorder, single episode, unspecified; Z95.818 Presence of other cardiac implants and grafts; Z90.89 Acquired absence of other organs; Z98.890 Other specified postprocedural states; Z88.8 Allergy status to other drugs, medicaments and biological substances; Z79.899 Other long term (current) drug therapy; Z79.82 Long term (current) use of aspirin
CPT/HCPCS: 36415; 71045-TC; 80048-TC; 80305; 84484-TC; 85025-TC; G0480

== ENCOUNTER 2020-07-25 13:08 | Emergency (ER) | payer OTHER ==
[~2020-07-25] VITALS: Ht 182.9 cm; Wt 68.0 kg
--- NOTE | 2020-07-25 13:40 | NUR ---
CHEST PAIN AND LIGHT HEADEDNESS X 3DAYS. PATIENT A/OX4, AMBULATORY WITH STEADY GAIT. NO SOB NOTED. EMT AT BEDSIDE FOR EKG.
[2020-07-25 15:08] LABS: BASOPHILS % (AUTO) 0.1 % (0.0-2.0); EOSINOPHILS % (AUTO) 0.1 % (0.0-6.0); HEMATOCRIT 47 % (39-51); HEMOGLOBIN 15.4 g/dL (13.5-17.5); LYMPHOCYTES # (AUTO) 0.9 /CMM (0.8-4.8); LYMPHOCYTES % (AUTO) 13.4 % (20.0-44.0); MEAN CORPUSCULAR HGB CONC 33 g/dl (31.0-36.0); MEAN CORPUSCULAR VOLUME 87 fL (80-96); MONOCYTES # (AUTO) 0.4 /CMM (0.1-1.30); MONOCYTES % (AUTO) 5.6 % (2.0-12.0); NEUTROPHILS # (AUTO) 5.7 /CMM (1.8-8.9); NEUTROPHILS % (AUTO) 80.8 % (43.0-81.0); PLATELET COUNT (AUTO) 166 /CMM (150-450); RED BLOOD CELL COUNT(AUTO) 5.39 MIL/uL (4.5-6.0)
[2020-07-25 15:09] LABS: CALCIUM, SERUM 9.6 mg/dL (8.5-10.1); CARBON DIOXIDE 23 mmol/L (21-32); CHLORIDE 104 mmol/L (98-107); CREATININE 0.7 mg/dL (0.6-1.3); GLUCOSE 83 mg/dL (74-106); POTASSIUM 4.1 mmol/L (3.5-5.1); SODIUM SERUM 136 mmol/L (136-145); UREA NITROGEN, BLOOD 13 mg/dL (7-18)
[2020-07-25] MEDS ORDERED: ONDANSETRON HCL/PF 4 MG/2 ML VIAL ONE (15:20)
[2020-07-25] MEDS ORDERED: MORPHINE SULFATE INJ 2 MG/ML DISP.SYRIN ONE (15:21)
[2020-07-25] MEDS ORDERED: MORPHINE SULFATE INJ 2 MG/ML DISP.SYRIN IV ONE (15:30)
[2020-07-25] MEDS ORDERED: ONDANSETRON HCL/PF - ER 4 MG/2 ML VIAL IV ONE (15:30)
[2020-07-25 15:50] LABS: BILIRUBIN,TOTAL 0.5 mg/dL (0.2-1.0)
[2020-07-25 15:51] LABS: ALBUMIN 3.9 g/dL (3.4-5.0); BILIRUBIN,DIRECT 0.1 mg/dL (0.0-0.2); TOTAL PROTEIN, SERUM 7.5 g/dL (6.4-8.2)
--- NOTE | 2020-07-25 16:40 | NUR ---
PATIENT A/OX4, BREATHING EVEN AND UNLABORED, NO SOB NOTED. NEEDS ATTENDED. IV removed. Catheter intact and site benign. Pressure and 4x4 applied to site. No bleeding noted.Patient discharged to home in stable condition. Written and verbal after care instructions given. Patient verbalizes understanding of instruction.
[2020-07-25 16:41] VITALS: BP 130/76
== END 2020-07-25 16:43 | disposition home or self-care (01) ==
LOC: ER 13:14
DX: R07.89 Other chest pain (principal); I10 Essential (primary) hypertension; J44.9 Chronic obstructive pulmonary disease, unspecified; E78.5 Hyperlipidemia, unspecified; I25.10 Atherosclerotic heart disease of native coronary artery without angina pectoris; E78.00 Pure hypercholesterolemia, unspecified; Z95.5 Presence of coronary angioplasty implant and graft; Z98.890 Other specified postprocedural states; Z90.89 Acquired absence of other organs; Z88.8 Allergy status to other drugs, medicaments and biological substances; Z79.82 Long term (current) use of aspirin; Z79.899 Other long term (current) drug therapy
CPT/HCPCS: 36415; 71045; 80048; 80076; 83690; 84484; 85025; 93005 ×2; 96374; 96375; 99285; J2270; J2405 ×2

== ENCOUNTER 2020-11-16 22:24 | Emergency (ER) | payer OTHER ==
[~2020-11-16] VITALS: Ht 182.9 cm; Wt 68.0 kg
[~2020-11-16 22:24] MED LIST changes: -ESCI20TA PO; -ESOM40CA PO; -ISOS60TA4 PO; +ISOS60TA72 PO
[2020-11-16] MEDS ORDERED: clonazePAM 1 MG TABLET ONE (22:38)
[2020-11-16 22:55] LABS: BASOPHILS % (AUTO) 0.2 % (0.0-2.0); EOSINOPHILS % (AUTO) 0.2 % (0.0-6.0); HEMATOCRIT 43 % (39-51); HEMOGLOBIN 14.4 g/dL (13.5-17.5); LYMPHOCYTES # (AUTO) 0.7 /CMM (0.8-4.8); LYMPHOCYTES % (AUTO) 10.4 % (20.0-44.0); MEAN CORPUSCULAR HGB CONC 33 g/dl (31.0-36.0); MEAN CORPUSCULAR VOLUME 84 fL (80-96); MONOCYTES # (AUTO) 0.4 /CMM (0.1-1.30); MONOCYTES % (AUTO) 5.5 % (2.0-12.0); NEUTROPHILS # (AUTO) 5.4 /CMM (1.8-8.9); NEUTROPHILS % (AUTO) 83.7 % (43.0-81.0); PLATELET COUNT (AUTO) 163 /CMM (150-450); RED BLOOD CELL COUNT(AUTO) 5.14 MIL/uL (4.5-6.0); WHITE BLOOD COUNT (AUTO) 6.4 K/uL (4.3-11.0)
--- NOTE | 2020-11-16 22:58 | NUR ---
PATIENT CAME TO ER BED 10 C/O MIDSTERNAL CHEST PAIN FOR 2x DAYS. PATIENT STATES THAT HE DOES NOT HAVE ANY MORE OF HIS KLONOPIN FOR HIS ANXIETY ATTACKS. PATIENT IS AAOX4. NO SOB. BREATHING EVENLY AND UNLABORED ON ROOM AIR. CONNECTED TO MONITOR.
[2020-11-16] MEDS ORDERED: clonazePAM 1 MG TABLET PO ONE (23:00)
[2020-11-16 23:13] LABS: CALCIUM, SERUM 8.7 mg/dL (8.5-10.1); CARBON DIOXIDE 31 mmol/L (21-32); CHLORIDE 103 mmol/L (98-107); CREATININE 0.7 mg/dL (0.6-1.3); GLUCOSE 89 mg/dL (74-106); POTASSIUM 4.1 mmol/L (3.5-5.1); SODIUM SERUM 138 mmol/L (136-145); UREA NITROGEN, BLOOD 11 mg/dL (7-18)
[2020-11-16] MEDS ORDERED: clonazePAM 0.5 MG TABLET ONE (23:43)
[2020-11-17] MEDS ORDERED: clonazePAM 1 MG TABLET PO ONE
[2020-11-17] MEDS ORDERED: NITROGLYCERIN 0.4 MG/TAB BOTTLE ONE (00:25)
[2020-11-17] MEDS ORDERED: NITROGLYCERIN 0.4 MG/TAB BOTTLE SL ONE (00:30)
[2020-11-17] MEDS ORDERED: CLON1TAB12 PO (01:40)
--- NOTE | 2020-11-17 01:49 | NUR ---
IV removed. Catheter intact and site benign. Pressure and 4x4 applied to site. No bleeding noted.
--- NOTE | 2020-11-17 01:49 | NUR ---
Patient discharged to home in stable condition. Written and verbal after care instructions given. Patient verbalizes understanding of instruction.
[2020-11-17 01:51] VITALS: BP 132/72
== END 2020-11-17 01:51 | disposition home or self-care (01) ==
LOC: ER 22:27
DX: R07.89 Other chest pain (principal); I10 Essential (primary) hypertension; I25.10 Atherosclerotic heart disease of native coronary artery without angina pectoris; E78.5 Hyperlipidemia, unspecified; J44.9 Chronic obstructive pulmonary disease, unspecified; F41.9 Anxiety disorder, unspecified; F32.9 Major depressive disorder, single episode, unspecified; E78.00 Pure hypercholesterolemia, unspecified; F17.200 Nicotine dependence, unspecified, uncomplicated; Z95.5 Presence of coronary angioplasty implant and graft; Z76.0 Encounter for issue of repeat prescription; Z98.890 Other specified postprocedural states; Z90.89 Acquired absence of other organs; Z88.8 Allergy status to other drugs, medicaments and biological substances; Z79.899 Other long term (current) drug therapy
CPT/HCPCS: 36415; 71045-TC; 80048-TC; 84484-TC; 85025-TC

== ENCOUNTER 2021-08-31 01:36 | Inpatient (IN) | payer MEDICARE, OTHER ==
[~2021-08-31] VITALS: Ht 182.9 cm; Wt 63.6 kg
[~2021-08-31 01:36] MED LIST changes: -OMEP40CA13 PO; +OMEP40CA21 PO
--- NOTE | 2021-08-31 01:47 | NUR ---
PATIENT BIBS C/O NON RADIATING MID CHEST PAIN SINCE 6PM. PATIENT ALERT AND ORIENTED X3. AMBULATORY WITH NON LABORED BREATHING.
[2021-08-31 04:03] LABS: CALCIUM, SERUM 7.9 mg/dL (8.5-10.1); CARBON DIOXIDE 25 mmol/L (21-32); CHLORIDE 112 mmol/L (98-107); GLUCOSE 72 mg/dL (74-106); POTASSIUM 3.8 mmol/L (3.5-5.1); SODIUM SERUM 145 mmol/L (136-145); UREA NITROGEN, BLOOD 11 mg/dL (7-18)
[2021-08-31] MEDS ORDERED: MORPHINE SULFATE INJ 2 MG/ML DISP.SYRIN IV ONE (04:30)
[2021-08-31] MEDS ORDERED: NITROGLYCERIN 0.4 MG/TAB BOTTLE SL ONE (04:30)
[2021-08-31] MEDS ORDERED: ASPIRIN 325 MG TABLET PO ONE (04:30)
[2021-08-31] MEDS ORDERED: MORPHINE SULFATE INJ 4 MG/ML DISP.SYRIN ONE (04:34)
[2021-08-31] MEDS ORDERED: ASPIRIN 325 MG TABLET ONE ×2 (04:35→04:51)
[2021-08-31] MEDS ORDERED: NITROGLYCERIN 0.4 MG/TAB BOTTLE ONE (04:35)
[2021-08-31 04:38] LABS: BASOPHILS % (AUTO) 0.2 % (0.0-2.0); EOSINOPHILS % (AUTO) 3.8 % (0.0-6.0); HEMATOCRIT 41 % (39-51); HEMOGLOBIN 13.7 g/dL (13.5-17.5); LYMPHOCYTES # (AUTO) 1.3 K/uL (0.8-4.8); LYMPHOCYTES % (AUTO) 23.6 % (20.0-44.0); MEAN CORPUSCULAR HGB CONC 33 g/dl (31.0-36.0); MEAN CORPUSCULAR VOLUME 84 fL (80-96); MONOCYTES # (AUTO) 0.4 K/uL (0.1-1.30); MONOCYTES % (AUTO) 6.5 % (2.0-12.0); NEUTROPHILS # (AUTO) 3.6 K/uL (1.8-8.9); NEUTROPHILS % (AUTO) 65.9 % (43.0-81.0); PLATELET COUNT (AUTO) 154 K/uL (150-450); RED BLOOD CELL COUNT(AUTO) 4.87 MIL/uL (4.5-6.0); WHITE BLOOD COUNT (AUTO) 5.5 K/uL (4.3-11.0)
[2021-08-31] MEDS ORDERED: ACETAMINOPHEN 325 MG TABLET PO PRN (06:00)
[2021-08-31] MEDS ORDERED: ONDANSETRON HCL/PF 4 MG/2 ML VIAL IVP PRN (06:00)
[2021-08-31] MEDS ORDERED: MAG HYDROX/AL HYDROX/SIMETH 30 ML UDC PO PRN (06:00)
[2021-08-31] MEDS ORDERED: Z GUARD REMEDY 4 OZ OINT TP PRN (06:00)
[2021-08-31] MEDS ORDERED: MAGNESIUM HYDROXIDE 30 ML UDC PO PRN (06:00)
--- NOTE | 2021-08-31 06:43 | NUR ---
MRSA SWAB COLLECTED AND SENT TO LAB. PATIENT'S BELONGINGS LIST DONE.
[2021-08-31] MEDS ORDERED: ESCI10TA PO (08:00)
[2021-08-31] MEDS ORDERED: ISOS30TA86 PO (08:01)
[2021-08-31] MEDS ORDERED: PANT40TA49 PO (08:02)
[2021-08-31] MEDS ORDERED: PANTOPRAZOLE 40 MG TABLET.DR PO ONE (08:20)
[2021-08-31] MEDS: PANTOPRAZOLE 40 MG TABLET.DR PO SCH (08:25)
--- NOTE | 2021-08-31 08:48 | NUR ---
ROOM GIVEN [id number]
--- NOTE | 2021-08-31 09:04 | NUR ---
REPORT GIVEN TO YESSENIA MCCONNELL TELE UNIT
[2021-08-31 09:20] VITALS: BP 146/82
--- NOTE | 2021-08-31 09:20 | NUR ---
MS ALIVIA OPENING NOTES RECEIVED PATIENT FROM ER ENDORSED BY ALIVIA AGUSTIN VIA STRETCHER. PATIENT IS AWAKE AND A/O X4. ON ROOM AIR TOLERATING WELL. NO SOB NOTED. NOT IN DISTRESS. WITH COMPLAINTS OF CHEST PAIN MIDSTERNAL AT 8/10. COMFORT MEASURES PROVIDED. MADE COMFORTABLE ON BED. SKIN ASSESSMENT DONE. ON TELE MONITOR CURRENTLY READING SINUS RHYTHM AT 73BPM. WITH IV ACCESS AT RIGHT HAND G22, SALINE LOCKED, PATENT AND INTACT. SAFETY MEASURES IN PLACED. CALL LIGHT WITHIN REACH. BED ON LOWEST LOCKED POSITION, SIDE RAILS UP X2. WILL CONTINUE TO MONITOR.
[2021-08-31] MEDS: NITROGLYCERIN PACKET 1 GM PACKET TOP SCH ×2 (09:36→20:42)
[2021-08-31] MEDS: ENOXAPARIN SODIUM 40 MG/0.4 ML DISP.SYRIN SQ SCH (09:38)
[2021-08-31] MEDS: ASPIRIN EC 81 MG TABLET.DR PO SCH (09:38)
[2021-08-31 10:00] VITALS: BP 146/82
[2021-08-31] MEDS: MORPHINE SULFATE INJ 2 MG/ML DISP.SYRIN IV PRN ×3 (10:56→19:43)
[2021-08-31] MEDS ORDERED: ASPIRIN EC 81 MG TABLET.DR PO SCH (11:30)
[2021-08-31] MEDS: CLOPIDOGREL BISULFATE 75 MG TABLET PO SCH (12:02)
[2021-08-31] MEDS: clonazePAM 1 MG TABLET PO PRN ×2 (12:02→20:02)
[2021-08-31] MEDS: ISOSORBIDE MONONITRATE (30MG) 30 MG TAB.SR.24H PO SCH (12:03)
[2021-08-31 16:00] VITALS: BP 118/59
--- NOTE | 2021-08-31 18:25 | NUR ---
ELECTRICAL LABORATORY TECHNICIAN CLOSING NOTES PATIENT RESTING ON BED AND A/O X4. ON ROOM AIR TOLERATING WELL. NO SOB NOTED. NOT IN DISTRESS. WITH NO COMPLAINTS OF PAIN OR DISCOMFORT AT THIS TIME. ON TELE MONITOR CURRENTLY READING SINUS RHYTHM AT 73BPM. WITH IV ACCESS AT RIGHT HAND G22, SALINE LOCKED, PATENT AND INTACT. SAFETY MEASURES IN PLACED. CALL LIGHT WITHIN REACH. BED ON LOWEST LOCKED POSITION, SIDE RAILS UP X2. WILL ENDORSE TO NEXT SHIFT FOR ESTELLE.
--- NOTE | 2021-08-31 19:30 | NUR ---
ADMITTING OFFICER OPENING NOTES RECEIVED PT AWAKE IN BED. A/O X4. PT STABLE ON ROOM AIR TOLERATING WELL. NO SOB OR S/S OR RESPIRATORY DISTRESS. ON EXTERNAL CARDIAC MONITORING CURRENTLY READING SR AT 74 BPM. IV ACCESS RFA G20, SALINE LOCKED, PATENT AND INTACT. SAFETY PRECAUTIONS IN PLACE. BED IN LOWEST LOCKED POSITION, HOB ELEVATED, SIDE RAILS UP X2, AND CALL LIGHT AND TABLE WITHIN REACH. WILL CONTINUE WITH PLAN OF CARE.
[2021-08-31 21:21] VITALS: BP 108/42
[2021-08-31 22:00] VITALS: BP 108/42
[2021-08-31] MEDS ORDERED: QUETIAPINE FUMARATE 100 MG TABLET PO SCH (22:00)
[2021-08-31] MEDS ORDERED: ATORVASTATIN 40 MG TABLET PO SCH (22:00)
[2021-09-01] VITALS (7 sets, daily range): BP systolic 96–146; BP diastolic 48–82
[2021-09-01] MEDS: MORPHINE SULFATE INJ 2 MG/ML DISP.SYRIN IV PRN ×4 (00:48→16:40)
--- NOTE | 2021-09-01 00:48 | NUR ---
RN NOTE PT COMPLAINED ABOUT PAIN 8/10 IN CHEST AREA. ADMINISTERED MORPHINE ORDERED FOR SEVERE PAIN. VSS. WILL CONTINUE TO MONITOR.
[2021-09-01] MEDS: clonazePAM 1 MG TABLET PO PRN ×3 (04:15→18:03)
--- NOTE | 2021-09-01 04:15 | NUR ---
RN NOTE PT COMPLAINED OF ANXIETY AND REQUESTED KLONOPIN. ADMINISTERED KLONOPIN ORDERED FOR ANXIETY. WILL CONTINUE TO MONITOR.
[2021-09-01 06:38] LABS: BASOPHILS % (AUTO) 0.2 % (0.0-2.0); EOSINOPHILS % (AUTO) 5.1 % (0.0-6.0); HEMATOCRIT 35 % (39-51); HEMOGLOBIN 11.9 g/dL (13.5-17.5); LYMPHOCYTES # (AUTO) 1.2 K/uL (0.8-4.8); LYMPHOCYTES % (AUTO) 25.6 % (20.0-44.0); MEAN CORPUSCULAR HGB CONC 34 g/dl (31.0-36.0); MEAN CORPUSCULAR VOLUME 83 fL (80-96); MONOCYTES # (AUTO) 0.3 K/uL (0.1-1.30); MONOCYTES % (AUTO) 6.8 % (2.0-12.0); NEUTROPHILS % (AUTO) 62.3 % (43.0-81.0); PLATELET COUNT (AUTO) 144 K/uL (150-450); RED BLOOD CELL COUNT(AUTO) 4.18 MIL/uL (4.5-6.0); WHITE BLOOD COUNT (AUTO) 4.8 K/uL (4.3-11.0)
--- NOTE | 2021-09-01 07:00 | NUR ---
APPLIED MARINE PHYSICS PROFESSOR CLOSING NOTES PT AWAKE IN BED. A/O X4. PT STABLE ON ROOM AIR TOLERATING WELL. NO SOB OR S/S OR RESPIRATORY DISTRESS. ON EXTERNAL CARDIAC MONITORING CURRENTLY READING SR AT 78 BPM. IV ACCESS RFA G20, SALINE LOCKED, PATENT AND INTACT. ALL NEEDS MET AT THIS TIME. SAFETY PRECAUTIONS IN PLACE AT ALL TIMES. BED IN LOWEST LOCKED POSITION, HOB ELEVATED, SIDE RAILS UP X2, AND CALL LIGHT AND TABLE WITHIN REACH. WILL ENDORSE TO ONCOMING SHIFT FOR ESTELLE.
--- NOTE | 2021-09-01 07:15 | NUR ---
RN NOTE PT COMPLAINED ABOUT PAIN 8/10 IN CHEST AREA. ADMINISTERED MORPHINE ORDERED FOR SEVERE PAIN. VSS. WILL CONTINUE TO MONITOR.
[2021-09-01 07:21] LABS: ALBUMIN 2.9 g/dL (3.4-5.0); BILIRUBIN,TOTAL 0.3 mg/dL (0.2-1.0); CALCIUM, SERUM 8.2 mg/dL (8.5-10.1); CREATININE 0.8 mg/dL (0.6-1.3); POTASSIUM 3.8 mmol/L (3.5-5.1); TOTAL PROTEIN, SERUM 5.8 g/dL (6.4-8.2)
[2021-09-01] MEDS ORDERED: PANTOPRAZOLE 40 MG TABLET.DR PO SCH (07:30)
--- NOTE | 2021-09-01 07:30 | NUR ---
REAL ESTATE BROKER ASSOCIATE OPENING NOTES RECEIVED PT AWAKE IN BED. A/O X4. PT STABLE ON ROOM AIR TOLERATING WELL. NO SOB OR S/S OR RESPIRATORY DISTRESS. ON EXTERNAL CARDIAC MONITORING CURRENTLY READING . IV ACCESS RFA G20, SALINE LOCKED, PATENT AND INTACT. SAFETY PRECAUTIONS IN PLACE. BED IN LOWEST LOCKED POSITION, HOB ELEVATED, SIDE RAILS UP X2, AND CALL LIGHT AND TABLE WITHIN REACH. WILL CONTINUE WITH PLAN OF CARE.
[2021-09-01] MEDS: PANTOPRAZOLE 40 MG TABLET.DR PO SCH (08:15)
[2021-09-01] MEDS ORDERED: ESCITALOPRAM OXALATE (10 MG) 10 MG TABLET PO SCH (09:00)
[2021-09-01] MEDS ORDERED: LOSARTAN POTASSIUM 50 MG TABLET PO SCH (09:00)
[2021-09-01 10:25] LABS: FERRITIN 49 ng/mL (8-388)
[2021-09-01] MEDS ORDERED: IV NS 0.9% 500 ML IV ONE (10:30)
[2021-09-01] MEDS: NITROGLYCERIN PACKET 1 GM PACKET TOP SCH (10:58)
[2021-09-01] MEDS: ASPIRIN EC 81 MG TABLET.DR PO SCH (10:59)
[2021-09-01] MEDS: ISOSORBIDE MONONITRATE (30MG) 30 MG TAB.SR.24H PO SCH (11:00)
[2021-09-01] MEDS: CLOPIDOGREL BISULFATE 75 MG TABLET PO SCH (11:03)
[2021-09-01] MEDS ORDERED: IOHEXOL-350 100 ML VIAL IV ONE (11:18)
[2021-09-01] MEDS ORDERED: IV NS 0.9% 250 ML IV ONE (11:18)
[2021-09-01] MEDS ORDERED: CT SWABBABLE VALVE TRANS SET 1 EA INFUS.SET MC ONE (11:18)
[2021-09-01] MEDS: ENOXAPARIN SODIUM 40 MG/0.4 ML DISP.SYRIN SQ SCH (12:02)
[2021-09-01] MEDS ORDERED: K PHOS NEUTRAL 250 MG TABLET PO ONE (13:00)
[2021-09-01 13:49] LABS: IRON, SERUM 56 ug/dl (50-175); TOTAL IRON BINDING CAPACITY 219 ug/dl (250-450)
[2021-09-01] MEDS: METOPROLOL TARTRATE 50 MG TABLET PO SCH ×2 (14:30→18:03)
[2021-09-01] MEDS ORDERED: HYDROCODONE/APAP 10/325MG TABLET PO PRN (15:00)
[2021-09-01] MEDS ORDERED: HYDR-4209 PO (18:26)
[2021-09-01 18:59] LABS: PROSTATE SPECIFIC ANTIGEN SCR 0.4 ng/mL (0.00-4.00)
--- NOTE | 2021-09-01 20:35 | NUR ---
LIFE MANAGEMENT TEACHERBUYER BROKER NOTE PT DISCHARGED TO [facility] WITH SELF CARE AT THIS TIME. PT IS MEDICALLY STABLE AND CLEARED FOR DISCHARGE. ALL PT CARE, NEEDS MEDICATIONS, AND TREATMENT ADMINISTERED ANTICIPATED PER ORDER. DISCHARGE INSTRUCTIONS PROVIDED TO PT. PT VERBALIZED UNDERSTANDING. IV ACCESS REMOVED, PRESSURE APPLIED, AND SECURED WITH GAUZE AND TAPE. NO SIGNS OF BLEEDING NOTED. ID BAND REMOVED. PT TRANSPORTED TO [facility] ACCOMPANIED BY ALIVIA MOLINA. CHARGE NURSE MELL LOPEZ.
--- NOTE | 2021-09-01 20:51 | NUR ---
SEXTON HELPER CLOSING NOTES PT AWAKE IN BED. A/O X4. PT STABLE ON ROOM AIR TOLERATING WELL. NO SOB OR S/S OR RESPIRATORY DISTRESS. ON EXTERNAL CARDIAC MONITORING CURRENTLY READING . IV ACCESS RFA G20, SALINE LOCKED, PATENT AND INTACT. ALL DUE MEDS GIVEN ORDERED. NO SOB NO DISTRESS NOTED. SAFETY PRECAUTIONS IN PLACE. BED IN LOWEST LOCKED POSITION, HOB ELEVATED, SIDE RAILS UP X2, AND CALL LIGHT AND TABLE WITHIN REACH. WILL ENDORSE INCOMING SHIFT FOR ESTELLE.
== END 2021-09-01 20:35 | disposition home or self-care (01) | DRG 951 ==
LOC: ER 01:39 → TRANSITION 04:13 → TELE 08:55 → UNDODISIN 09-01 17:30
PROVIDERS: ADMIT Internal Medicine; ATTEND Nurse Practitioner Family
DX: Z76.5 Malingerer [conscious simulation] (principal); Z20.822 Contact with and (suspected) exposure to COVID-19; E78.5 Hyperlipidemia, unspecified; I25.10 Atherosclerotic heart disease of native coronary artery without angina pectoris; I10 Essential (primary) hypertension; K59.00 Constipation, unspecified; N40.0 Benign prostatic hyperplasia without lower urinary tract symptoms; Z95.5 Presence of coronary angioplasty implant and graft; Z79.82 Long term (current) use of aspirin; Z71.6 Tobacco abuse counseling; F17.210 Nicotine dependence, cigarettes, uncomplicated
CPT/HCPCS: 36415; 71045-TC; 75574; 80048-TC; 80053-TC; 80061-TC; 82728-TC; 83540-TC; 83735-TC; 83880; 84100-TC; 84153-TC; 84154-TC; 84484-TC; 85025-TC; 87081-TC; 93307-TC; G0378; J1650; J2270; J2405; J7050; Q9967

== ENCOUNTER 2022-02-12 11:19 | Emergency (ER) | payer OTHER ==
[~2022-02-12] VITALS: Ht 182.9 cm; Wt 70.3 kg
[~2022-02-12 11:19] MED LIST changes: -BENZ1TAB7 PO; -DIVA500T54 PO; -DOCU-270 PO; +ESCI10TA PO; -HYDR-3895 PO; -HYDR-3980 PO; +HYDR-4209 PO; +ISOS30TA86 PO; -ISOS60TA72 PO; -LORA2TAB95 PO; -METO25TA6 PO; -NITR0.4T48 PO; -OMEP40CA21 PO; +PANT40TA49 PO; -SUCR1TAB PO
--- NOTE | 2022-02-12 11:52 | NUR ---
TO ER BED 4, BIBS C/O CHEST PAIN NON RADIATING STARTED AT 7AM P/S /10, HX OF STENT, TOOK ASPIRING AND NITRO AT HOME, AAOX3, BREATHING EVEN AND NON LABORED, CONNECTED TO MONITOR, AWAITING MD TAVERA
--- NOTE | 2022-02-12 12:00 | NUR ---
SALINE LOCK ESTABLISHED, BLOOD DRAWN AND SENT TO LAB
--- NOTE | 2022-02-12 12:06 | NUR ---
CEMENT STORAGE WORKER AT BEDSIDE FOR XRAY
[2022-02-12 12:16] LABS: BASOPHILS % (AUTO) 0.3 % (0.0-2.0); EOSINOPHILS % (AUTO) 4.8 % (0.0-6.0); HEMATOCRIT 42 % (39-51); HEMOGLOBIN 14.1 g/dL (13.5-17.5); MEAN CORPUSCULAR HGB CONC 34 g/dl (31.0-36.0); MEAN CORPUSCULAR VOLUME 83 fL (80-96); MONOCYTES # (AUTO) 0.5 K/uL (0.1-1.30); MONOCYTES % (AUTO) 7.1 % (2.0-12.0); NEUTROPHILS % (AUTO) 72.8 % (43.0-81.0); PLATELET COUNT (AUTO) 158 K/uL (150-450); WHITE BLOOD COUNT (AUTO) 6.9 K/uL (4.3-11.0)
[2022-02-12 12:33] LABS: CALCIUM, SERUM 8.6 mg/dL (8.5-10.1); CARBON DIOXIDE 28 mmol/L (21-32); CHLORIDE 111 mmol/L (98-107); CREATININE 0.8 mg/dL (0.6-1.3); GLUCOSE 82 mg/dL (74-106); POTASSIUM 3.5 mmol/L (3.5-5.1); SODIUM SERUM 146 mmol/L (136-145); UREA NITROGEN, BLOOD 14 mg/dL (7-18)
--- NOTE | 2022-02-12 13:40 | NUR ---
OPERATIONS MGR AT BEDSIDE FOR BLOOD DRAW
[2022-02-12] MEDS ORDERED: LORAZEPAM INJ 2 MG/ML VIAL IV ONE (15:00)
[2022-02-12] MEDS ORDERED: DIVA-78 PO (15:20)
[2022-02-12] MEDS ORDERED: LORAZEPAM INJ 2 MG/ML VIAL ONE (15:21)
[2022-02-12] MEDS ORDERED: ASPIRIN 325 MG TABLET ONE (15:26)
[2022-02-12] MEDS ORDERED: ASPIRIN 81 MG TAB.CHEW PO ONE (15:30)
--- NOTE | 2022-02-12 15:30 | NUR ---
COVID ANTIGEN SWAB DONE AND SENT TO THE LAB
--- NOTE | 2022-02-12 19:18 | NUR ---
REPORT GIVEN TO KHANH BUNCH FOR ESTELLE
--- NOTE | 2022-02-12 19:44 | NUR ---
RECEIVED PATIENT AAOX4, -CP, -SOB AT THE MOMENT. ABLE TO FINISH HIS DINNER TRAY 100%. WILL CONTINUE TO MONITOR PATIENT.
--- NOTE | 2022-02-12 21:03 | NUR ---
BRYCE [facility] COORDINATOR WORKING ON TRANSFERING THE PATIENT
--- NOTE | 2022-02-12 22:10 | NUR ---
S/W BRYCE [phone]. PT BEING [place] LES MOLINA, ACCEPTING MD FRIEDMAN
--- NOTE | 2022-02-12 22:35 | NUR ---
DR. NUNES ON THE PHONE WITH LES MOLINA MD.
[2022-02-13] MEDS ORDERED: IBUPROFEN 400 MG TABLET PO ONE
[2022-02-13] MEDS ORDERED: IBUPROFEN 400 MG TABLET ONE (00:04)
--- NOTE | 2022-02-13 00:06 | NUR ---
PATIENT COMPLAINING OF PAIN. DR ADAMS MADE AWARE
--- NOTE | 2022-02-13 00:08 | NUR ---
S/W [facility] [phone], [place] INFO: [facility] ROOM [id number] BED 1 , REPORT TO LESLIE BUNCH [phone], SHE IS WORKING ON ARRANGING TRANSPORTATION
--- NOTE | 2022-02-13 01:38 | NUR ---
REPORT GIVEN TO LES BIANCHI.
[2022-02-13] MEDS ORDERED: LORAZEPAM 1 MG TABLET PO ONE (03:00)
[2022-02-13] MEDS ORDERED: LORAZEPAM 1 MG TABLET ONE (03:11)
--- NOTE | 2022-02-13 04:44 | NUR ---
REPORT GIVEN TO PORTER CORNERS VALERIO EMT. PATIENT WILL TRANSFER TO [facility].
--- NOTE | 2022-02-13 04:45 | NUR ---
Patient discharged to home in stable condition. Written and verbal after care instructions given. Patient verbalizes understanding of instruction.
[2022-02-13 04:46] VITALS: BP 146/73
== END 2022-02-13 04:46 | disposition short-term general hospital (02) ==
LOC: ER 11:37
DX: R07.9 Chest pain, unspecified (principal); I25.10 Atherosclerotic heart disease of native coronary artery without angina pectoris; Z95.5 Presence of coronary angioplasty implant and graft; Z20.822 Contact with and (suspected) exposure to COVID-19; J44.9 Chronic obstructive pulmonary disease, unspecified; E78.5 Hyperlipidemia, unspecified; Z88.8 Allergy status to other drugs, medicaments and biological substances; F32.A Depression, unspecified; F41.9 Anxiety disorder, unspecified; Z79.899 Other long term (current) drug therapy; Z79.02 Long term (current) use of antithrombotics/antiplatelets
CPT/HCPCS: 36415; 71045; 80048; 84484 ×2; 85025; 87081; 87426; 93005; 96374; 99285; C9803; J2060